=== PATIENT | female | born 1970 | race Hispanic/Latino ===

== ENCOUNTER 2019-06-21 08:12 | Emergency (ER) | payer OTHER, SELFPAY ==
[2019-06-21] MEDS ORDERED: ONDANSETRON 4 MG (ODT) TAB ONE (09:22)
[2019-06-21 09:30] LABS: Urine Blood 1+ (NEG); Urine Glucose NEGATIVE (NEG); Urine Protein NEGATIVE (NEG); Urine Specific Gravity 1.015 (1.005-1.030); Urine pH 6.5 (5.0-7.0)
[2019-06-21 09:30] LABS: Urine Specific Gravity 1.015 (1.005-1.030)
[2019-06-21] MEDS ORDERED: HYDROCODONE/APAP 5/325 MG TAB ONE (09:32)
--- NOTE | 2019-06-21 10:37 | RAD REPORT ---
EXAM DESCRIPTION: Mic Abdi And Dileep (2 Views)06/21/2019 10:30 am CLINICAL HISTORY: sob COMPARISON: None FINDINGS: The lungs appear clear of acute infiltrate. The heart is normal size IMPRESSION: No acute abnormalities displayed
--- NOTE | 2019-06-21 10:52 | ER ---
Nurse's Notes [facility] Name: Ibeth Gray Age: 49 yrs Sex: Female : 1970 Arrival Date: 06/21/2019 Time: 08:17 Bed 19 Private MD: Diagnosis: Acute bronchitis;Acute pharyngitis Presentation: 06/20 08:26 Chief complaint: Patient states: sinus pain, fever, pain to left side of throat and iw body aches, started Thursday bit got worse last night. Coronavirus screen: The patient has NOT traveled to [place] in the past 14 days. Proceed with normal triage procedures. Ebola Screen: Patient negative for fever greater than or equal to 101.5 degrees Fahrenheit, and additional compatible Ebola Virus Disease symptoms Patient denies exposure to infectious person. Patient denies travel to an Ebola-affected area in the 21 days before illness onset. No symptoms or risks identified at this time. Initial Sepsis Screen: Does the patient meet any 2 criteria? No. Patient's initial sepsis screen is negative. Does the patient have a suspected source of infection? No. Patient's initial sepsis screen is negative. Risk Assessment: Do you want to hurt yourself or someone else? Patient reports no desire to harm self or others. 08:26 Method Of Arrival: Ambulatory iw 08:26 Acuity: [place] 4 iw 11:10 Onset of symptoms was June 2019. mg2 Triage Assessment: 09:43 General: Appears in no apparent distress. comfortable, Behavior is calm, cooperative. mg2 Respiratory: Onset: The symptoms/episode began/occurred gradually, the patient has mild shortness of breath. 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 - Social history:: Smoking status: Patient denies any tobacco usage or history of. Screenin:41 Abuse screen: Denies threats or abuse. Denies injuries from another. Nutritional mg2 screening: No deficits noted. Tuberculosis screening: No symptoms or risk factors identified. Fall Risk None identified. Assessment: 09:34 General: Appears in no apparent distress. comfortable, Behavior is calm, cooperative. mg2 Pain: Complains of pain in whole body and throat. Neuro: Level of Consciousness is awake, alert, obeys commands, Oriented to person, place, time, situation. Respiratory: Airway is patent Respiratory effort is even, unlabored, Respiratory pattern is regular, symmetrical, Breath sounds are clear bilaterally. in mediastinum, right upper lobe, left upper lobe, right middle lobe, left lower lobe and right lower lobe. GI: No signs and/or symptoms were reported involving the gastrointestinal system. : No signs and/or symptoms were reported regarding the genitourinary system. EENT: Reports sore throat. Derm: Skin is intact, is healthy with good turgor, Skin is pink, warm \T\ dry. normal. Musculoskeletal: Circulation, motion, and sensation intact. Capillary refill < 3 seconds. 11:09 Cardiovascular: Rhythm is regular. mg2 11:09 Reassessment: Patient states feeling better. Patient states symptoms have improved. mg2 Vital Signs: 08:26 BP 138 / 100; Pulse 117; Resp 16 S; Temp 99.7; Pulse Ox 99% on R/A; Weight 86.18 kg; iw Height 5 ft. 2 in. (158 cm); 09:39 BP 122 / 71; Pulse 110; Resp 19; Temp 99.8; Pulse Ox 98% on R/A; mg2 10:59 BP 125 / 68; Pulse 98; Resp 18; Temp 99.1; Pulse Ox 98% on R/A; mg2 08:26 Body Mass Index 34.52 (86.18 kg, 158 cm) iw ED Course: 08:17 Patient arrived in ED. ag5 08:28 Triage completed. iw 08:28 Arm band placed on. iw 08:54 Mary Manzanares [facility]-C [facility]. snw 08:54 Aaron Lucero MD is Attending Physician. snw 09:15 Chan Peterson RN is Primary Nurse. mg2 09:42 Patient has correct armband on for positive identification. mg2 09:42 No provider procedures requiring assistance completed. Patient did not have IV access mg2 during this emergency room visit. 10:27 Patient moved to radiology via wheelchair. jb2 10:32 Chest Pa And Lat (2 Views) XRAY In Process Unspecified. EDMS 10:33 Patient moved back from radiology. jb2 Administered Medications: 09:25 Drug: Zofran (Ondansetron) 4 mg Route: PO; mg2 10:33 Follow up: Response: No adverse reaction mg2 09:39 Drug: [place] 5 mg-325 mg 1 tabs Route: PO; mg2 10:32 Follow up: Response: No adverse reaction mg2 Outcome: 10:51 Discharge ordered by . linnea 11:10 Discharged to home ambulatory, with family. mg2 11:10 Condition: stable 11:10 Discharge instructions given to patient, family, Instructed on discharge instructions, follow up and referral plans. medication usage, Demonstrated understanding of instructions, follow-up care, medications, Prescriptions given X 2. 11:10 Patient left the ED. mg2 Signatures: Dispatcher [employer] EDMS Mary Maznanares, [employer]AD-Eric Ellis jb2 Regina Patino, RN [place] iw Chan Peterson RN RN mg2 Rashad, Neha 5
--- NOTE | 2019-06-21 10:52 | EDPHYS ---
Physician Documentation [facility] Name: Ibeth Gray Age: 49 yrs Sex: Female : 1970 Arrival Date: 06/21/2019 Time: 08:17 Bed 19 Private MD: ED Physician Aaron Lucero HPI: 06/20 09:31 This 49 yrs old Female presents to ER via Ambulatory with complaints of Fever, snw Breathing Difficulty, Sore Throat. 09:31 The patient reports fever, not measured (subjective). Onset: The symptoms/episode snw began/occurred suddenly. Modifying factors: there are no obvious modifying factors. Associated signs and symptoms: Pertinent positives: chills, cough, decreased appetite, myalgias, sore throat. Severity of symptoms: At their worst the symptoms were moderate in the emergency department the symptoms are unchanged. The patient has not experienced similar symptoms in the past. It is unknown whether or not the patient has recently seen a physician. 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 - Social history:: Smoking status: Patient denies any tobacco usage or history of. ROS: 09:30 Eyes: Negative for injury, pain, redness, and discharge. snw 09:30 Neck: Negative for injury, pain, and swelling, Cardiovascular: Negative for chest pain, palpitations, and edema. 09:30 Abdomen/GI: Negative for abdominal pain, nausea, vomiting, diarrhea, and constipation, Back: Negative for injury and pain, : Negative for injury, bleeding, discharge, and swelling, MS/Extremity: Negative for injury and deformity, Skin: Negative for injury, rash, and discoloration, Neuro: Negative for headache, weakness, numbness, tingling, and seizure, Psych: Negative for depression, anxiety, suicide ideation, homicidal ideation, and hallucinations. 09:30 Constitutional: Positive for body aches, fatigue, fever, malaise. 09:30 ENT: Positive for sore throat. 09:30 Respiratory: Positive for cough. Exam: 09:28 Head/Face: Normocephalic, atraumatic. Eyes: Pupils equal round and reactive to light, snw extra-ocular motions intact. Lids and lashes normal. Conjunctiva and sclera are non-icteric and not injected. Cornea within normal limits. Periorbital areas with no swelling, redness, or edema. 09:28 Neck: Trachea midline, no thyromegaly or masses palpated, and no cervical lymphadenopathy. Supple, full range of motion without nuchal rigidity, or vertebral point tenderness. No Meningismus. Chest/axilla: Normal chest wall appearance and motion. Nontender with no deformity. No lesions are appreciated. 09:28 Abdomen/GI: Soft, non-tender, with normal bowel sounds. No distension or tympany. No guarding or rebound. No evidence of tenderness throughout. Back: No spinal tenderness. No costovertebral tenderness. Full range of motion. Skin: Warm, dry with normal turgor. Normal color with no rashes, no lesions, and no evidence of cellulitis. MS/ Extremity: Pulses equal, no cyanosis. Neurovascular intact. Full, normal range of motion. Neuro: Awake and alert, GCS 15, oriented to person, place, time, and situation. Cranial nerves II-XII grossly intact. Motor strength 5/5 in all extremities. Sensory grossly intact. Cerebellar exam normal. Normal gait. Psych: Awake, alert, with orientation to person, place and time. Behavior, mood, and affect are within normal limits. 09:28 Constitutional: The patient appears alert, awake, uncomfortable. 09:28 ENT: TM's: are normal, Nose: is normal, Mouth: Oral mucosa: normal, Posterior pharynx: erythema, that is moderate, that is marked, Dental exam: normal. 09:28 Cardiovascular: Rate: tachycardic, Heart sounds: normal. 09:28 Respiratory: the patient does not display signs of respiratory distress, Respirations: normal, Breath sounds: are clear throughout, cough. Vital Signs: 08:26 BP 138 / 100; Pulse 117; Resp 16 S; Temp 99.7; Pulse Ox 99% on R/A; Weight 86.18 kg; iw Height 5 ft. 2 in. (158 cm); 09:39 BP 122 / 71; Pulse 110; Resp 19; Temp 99.8; Pulse Ox 98% on R/A; mg2 10:59 BP 125 / 68; Pulse 98; Resp 18; Temp 99.1; Pulse Ox 98% on R/A; mg2 08:26 Body Mass Index 34.52 (86.18 kg, 158 cm) iw MDM: 08:59 Patient medically screened. snw 10:52 Data reviewed: vital signs, nurses notes. Data interpreted: Pulse oximetry: on room air snw is 98 %. Interpretation: normal. Counseling: I had a detailed discussion with the patient and/or guardian regarding: the historical points, exam findings, and any diagnostic results supporting the discharge/admit diagnosis, lab results, radiology results, the need for outpatient follow up, to return to the emergency department if symptoms worsen or persist or if there are any questions or concerns that arise at home. Special discussion: Based on the history and exam findings, there is no indication for further emergent testing or inpatient evaluation. I discussed with the patient/guardian the need to see the primary care provider for further evaluation of the symptoms. 06/20 08:32 Order name: Flu; Complete Time: 09:26 iw 06/20 08:32 Order name: Strep; Complete Time: 09:26 iw 06/20 09:20 Order name: Throat Culture EDAL 06/20 09:27 Order name: Urine Dipstick--Ancillary (enter results) bd 06/20 09:07 Order name: Urine Dipstick-Ancillary (obtain specimen); Complete Time: 09:28 jv1 06/20 09:28 Order name: Urine --Ancillary (enter results) bd 06/20 09:31 Order name: Urine Dipstick-Ancillary [facility] 06/20 09:31 Order name: Urine --Ancillary [facility] 06/20 09:59 Order name: Chest Pa And Lat (2 Views) XRAY; Complete Time: 10:53 snw 06/20 10:38 Order name: VS Recheck; Complete Time: 11:02 snw Administered Medications: 09:25 Drug: Zofran (Ondansetron) 4 mg Route: PO; mg2 10:33 Follow up: Response: No adverse reaction mg2 09:39 Drug: [place] 5 mg-325 mg 1 tabs Route: PO; mg2 10:32 Follow up: Response: No adverse reaction mg2 Disposition: 06/21/19 10:51 Discharged to Home. Impression: Acute bronchitis, Acute pharyngitis. - Condition is Stable. - Discharge Instructions: Acute Bronchitis, Adult, Fever, Adult, Pharyngitis, Rehydration, Adult. - Prescriptions for Tessalon Perles 100 mg Oral Capsule - take 1 capsule by ORAL route every 8 hours As needed; 15 capsule. Prednisone 20 mg Oral Tablet - take 2 tablet by ORAL route once daily for 5 days; 10 tablet. - Work release form, Medication Reconciliation Form, Thank You Letter, Antibiotic Education, Prescription Opioid Use form. - Follow up: Emergency Department; When: As needed; Reason: Worsening of condition. Follow up: Private Physician; When: 2 - 3 days; Reason: Recheck today's complaints, Continuance of care, Re-evaluation by your physician. Addendum: 06/27/2019 01:27 Co-signature as Attending Physician, Aaron Lucero MD. m a2 Signatures: Dispatcher [employer] EDAL Mary Manzanares, YVAN-C [employer]AV[employer]QUIPMENT DIESEL MECHANIC-[employer] Regina Patino RN RN iw Aaron Lucero MD MD ma2 Chan Peterson RN RN mg2 Mavis Gray RN RN jv1 Corrections: (The following items were deleted from the chart) 06/20 11:10 10:51 06/21/2019 10:51 Discharged to Home. Impression: Acute bronchitis; Acute mg2 pharyngitis. Condition is Stable. Forms are Medication Reconciliation Form, Thank You Letter, Antibiotic Education, Prescription Opioid Use. Follow up: Emergency Department; When: As needed; Reason: Worsening of condition. Follow up: Private Physician; When: 2 - 3 days; Reason: Recheck today's complaints, Continuance of care, Re-evaluation by your physician. snw
[2019-06-21 11:36] VITALS: O2SAT 98
[2019-06-21 12:34] VITALS: BP 125/68; TEMP 99.1
== END 2019-06-21 11:10 | disposition home or self-care (01) ==
LOC: ER 08:12
DX: J20.9 Acute bronchitis, unspecified (principal); J02.9 Acute pharyngitis, unspecified
CPT/HCPCS: 71046; 81003; 81025; 87070; 87081; 87804; 99283